=== PATIENT | female | born 1985 ===

== ENCOUNTER 2018-06-03 16:48 | Inpatient (IN) ==
--- NOTE | 2018-06-03 16:28 | OB/GYN History & Physical ---
Date of Encounter: 06/03/18 Time of Encounter: 16:25 Assessment and Plan (1) 40 weeks gestation of Current visit: Yes Status: Acute admitted for delivery (2) Rh negative status during in third trimester Current visit: Yes Status: Acute Rhogam evaluation following delivery History of Present Illness Chief complaint: BPP 4/8 HPI: Ms. Garcia is a 32 year old female at 40w2d presents to labor and delivery for IOL for post dates with BPP 4/8. 0 for tone and breathing. Patient reports irregular contractions, denies LOF or VB. Blood type: A Negative Rubella: Immune Hep B:Nonreactive Group B: Negative Past Med Surg Social Fam HX - Past Medical History Source: patient Medical history: no medical history Psychiatric history: no psych history - Past Surgical History Surgical History: other (I&D of abcess R breast, wisdom teeth) - Social History Smoking Status: Never smoker Smokeless Tobacco Status: No Alcohol use: none Drug use: none Occupational status: employed Current living situation: Home - Independent Activity Level: Independent ambulation Recent Out of Country Travel Within the Last 8 Weeks: No Exposure or Possible Exposure to Illness During Travel: No Obstetrical History - Pregnancies : 2 Para: 1 Term: 1 : 0 Ab's: 0 Livin Medications and Allergies 3 Allergy/AdvReac Type Severity Reaction Status Date / Time No Known Allergies Allergy Verified 06/03/18 16:11 Review of System OB - Constitutional Constitutional ROS IM: no fever(s), no headache(s) - Cardiovascular Cardiovascular: no chest pain, no palpitations, no syncope - Gastrointestinal Gastrointestinal: no abdominal pain, no diarrhea, no heartburn, no nausea, no vomiting - Genitourinary Genitourinary: no abnormal vaginal bleeding, no dysuria, no flank pain, no urinary urgency, no vaginal discharge, no vaginal odor, no vaginal pruritis Exam - Constitutional Constitutional: well developed, well nourished, no acute distress, average body habitus - HEENT HEENT: Normocephaly, Mucus Membranes Moist - Neck Neck exam: full ROM, supple - Lungs Respiratory exam: CTAB - Cardiovascular Cardiovascular exam: RRR, +S1, +S2 - Abdomen Abdomen: Present: bowel sounds normal, gravid, non tender - Extremities Extremities exam: full ROM, normal capillary refill, normal inspection Deep Tendon Reflex Grade: 2+ Normal - Cervix Dilation: 3 (per CNM in office) Effacement: 70 Station: -1 - Uterus Uterus exam: Present: normal size, normal contour - Anus/Rectum Anus/Rectum: Present: normal perianal skin - Comments Comments: FHR 125 bpm moderate variability +15x15 accels no decels noted. Cat 1 tracing. Contractions are irregular. Results All other labs normal. - VTE Reasons for not Prescribing Prophylaxis: Treatment not Indicated - Low risk for VTE
[2018-06-03 16:48] LABS: Amphetamine Screen,Urine Negative ng/mL (Cutoff=1000); Barbiturate Screen,Urine Negative ng/mL (Cutoff=200); Benzodiazepines Screen,Urine Negative ng/mL (Cutoff=200); Cannabinoid Screen,Urine Negative ng/mL (Cutoff = 50); Cocaine Screen,Urine Negative ng/mL (Cutoff= 300); Opiate Screen,Urine Negative ng/mL (Cutoff=300); Phencyclidine Screen,Urine Negative ng/mL (Cutoff=25)
[~2018-06-03 16:48] MED LIST: *HR* Nalbuphine 10 MG/ML AMPUL IVP PRN; Famotidine 20 MG/2 ML VIAL IVP PRN; Naloxone 0.4 MG/ML INJ IVP PRN; Ondansetron 4 MG/2 ML VIAL IVP PRN; Ringers Solution, Lactated 1,000 ML IVC SCH
[2018-06-03 16:49] LABS: Basophils # 0.1 K/mcL (0.0-0.2); Basophils % 0.5 %; Eosinophils # 0.1 K/mcL (0.0-0.6); Eosinophils % 0.5 %; Hematocrit 35.1 % (35.3-44.9); Hemoglobin 11.7 g/dL (11.5-15.4); Immature Granulocytes % 2.2 % (0-4); Immature Platelets 11.2 % (1.1-6.1); Lymphocytes % 18.1 %; Mean Corpuscular HGB Conc 33.3 g/dL (31.6-35.5); Mean Corpuscular Hemoglobin 30.7 pg (28.0-33.3); Mean Corpuscular Volume 92.1 fL (83.0-100.0); Mean Platelet Volume 11.9 fL (9.4-12.4); Monocytes # 1.1 K/mcL (0.0-1.3); Monocytes % 9.5 %; Neutrophils # 7.8 K/mcL (1.6-8.9); Platelet Count 109 K/mcL (140-400); Red Blood Count 3.81 M/mcL (3.82-4.97); Red Cell Distribution Width 13.7 % (11.5-14.5); Segmented Neutrophils % 69.2 %
[2018-06-03 17:09] LABS: Platelet Estimate Decreased (Normal)
--- NOTE | 2018-06-03 19:10 | OB Labor Progress Note ---
Date of Encounter: 06/03/18 Time of Encounter: 19:08 Labor Progress Note - Subjective Subjective: Patient resting in bed. Discussed POC with patient. Patient enquiring again about going home. Patient requesting to use breast pump to try and start labor. Patient declines any other medication at this time. - Cervix Cervix: 4/70/-1 - Heart Tones Heart Tones: 135 bpm moderate variability +15x15 accels no decels noted. - [place] Collins: irregular - Interventions Interventions: SVE - Plan Plan: Continue EFM, will try nipple stimulation with breast pump to help regulate contractions. Discussed again with patient she would have to sign out AMA if she wishes to go home.
--- NOTE | 2018-06-03 21:36 | OB Labor Progress Note ---
Date of Encounter: 06/03/18 Time of Encounter: 21:34 Labor Progress Note - Subjective Subjective: Patient requesting SVE. Patient reports contractions are getting stronger and closer together. - Cervix Cervix: 4.5/70/-1 - Heart Tones Heart Tones: 120 bpm moderate variability +15x15 accels variable noted. - [place]: 1.5-6 min apart - Interventions Interventions: SVE - Plan Plan: Patient would like to continue to use birthing ball at this time. Possible AROM at 5-6 CM
[2018-06-04] MEDS ORDERED: Oxytocin 20 units/ LR 1000 mL 20 UNIT/1,000 ML BAG IVC ONE (00:44)
--- NOTE | 2018-06-04 02:58 | OB/GYN Procedure Note ---
Delivery - Delivery Date: 06/04/18 Provider: Tram Awad Intrapartum events: none Delivery induction: AROM, other (cervical ripening ) Delivery monitor: external FHT, external uterine Anesthesia: local (for repair) Quantitated Blood Loss: 250 - Infant (s) A Infant Delivery Date: 06/04/18 Infant Delivery Time: 02:20 Presentation: vertex Position: JESSICA Route of delivery: Gender: Female Viability: Viable Pounds: 9 Ounces: 3 Weight Gram: 4180 kg Shoulder Dystocia: not encountered Specimens collected: cord blood Placenta: spontaneous, uterine exploration Cord: nuchal cord (x1), 3 umbilical vessels, nuchal reduced - Repair Episiotomy: none Laceration Description: Perineal - 2nd Degree (repaired with 3-0 vicryl) - Complications Delivery complications: none - Disposition Mom disposition: stable in LDR [place] disposition: stable in LDR - Comments Comments: Called to LDR patient feels pressure. Patient progressed to complete. Under maternal effort patient spontaneously delivered a viable female . A nuchal cord x1 was noted and easily reduced, no shoulder dystocia or meconium was noted. Infant was placed on maternal abdomen. A second degree perineal laceration noted and repaired with 3-0 vicryl. 1% lidocaine was used to anesthetize for repair. Cord was clamped and cut after pulsations ceased. Cord blood was collected. Placenta delivered spontaneously and intact. 3 vessel cord. Pericare provided, all counts correct. Mother and infant stable in LDR for 2 hour recovery.
[2018-06-04] MEDS ORDERED: Acetaminophen 325 MG TABLET PO PRN (03:16)
[2018-06-04] MEDS ORDERED: Benzocaine/Menthol 56 GM AEROSOL SPRAY TP PRN (03:16)
[2018-06-04] MEDS ORDERED: Lanolin 7 G OINT...G. TP PRN (03:16)
[2018-06-04] MEDS ORDERED: *HR* HYDROcodone/Acet 5/325 mg TABLET PO PRN (03:16)
[2018-06-04] MEDS ORDERED: Oxytocin 20 units/ LR 1000 mL 20 UNIT/1,000 ML BAG IVC SCH (03:16)
[2018-06-04] MEDS ORDERED: Measles/Mumps/Rubella Vacc 0.5 ML VIAL SQ PRN (03:16)
[2018-06-04] MEDS ORDERED: Rho Immune Globulin 1,500 UNIT SYRINGE IM PRN (03:16)
[2018-06-04] MEDS: Ibuprofen 600 MG TABLET PO PRN ×4 (03:41→22:08)
[2018-06-04] MEDS: Prenatal Vit/FA 1 EACH TABLET PO SCH (07:57)
[2018-06-05] MEDS: Ibuprofen 600 MG TABLET PO PRN (05:30)
[2018-06-05 08:06] VITALS: BP 96/57
--- NOTE | 2018-06-05 08:17 | Discharge Summary ---
Date of Encounter: 06/05/18 Time of Encounter: 08:14 - Discharge Diagnosis (1) 40 weeks gestation of Priority: Secondary Status: Acute (2) Rh negative status during in third trimester Priority: Secondary Status: Acute (3) Vaginal delivery Priority: Primary Status: Acute Comments: Continue routine care discharge home today follow up with CNM in 4-6 weeks (4) Second degree perineal laceration during delivery Priority: Secondary Status: Acute Comments: Continue routine perineal care sitz baths pern Continue colace (5) Breast feeding status of mother Priority: Secondary Status: Acute Comments: support prn - Discharge Medications Prescriptions: Ibuprofen [Motrin] 600 mg PO Q6HR PRN #60 tablet PRN Reason: Cramping Home Medications: Vit/Iron Fumarate/FA [ Tablet] 1 tab PO DAILY 06/03/18 [History ] Benzocaine/Menthol [place] [Dermoplast [place]] 1 appl TP QID PRN aerosol 06/05/18 [Rx] Docusate [Colace] 100 mg PO BID capsule 06/05/18 [Rx] Ibuprofen [Motrin] 600 mg PO Q6HR PRN #60 tablet 06/05/18 [Rx] Lanolin [Lansinoh] 1 appl TP TID PRN oint...g. 06/05/18 [Rx] Vit/FA 1 each PO DAILY tablet 06/05/18 [Rx] Allergies/Adverse Reactions: 3 Allergy/AdvReac Type Severity Reaction Status Date / Time No Known Allergies Allergy Verified 06/03/18 16:11 Data Procedures and tests throughout hospitalization: Laboratory Tests 06/03/18 06/03/18 06/04/18 16:00 16:00 03:15 WBC 11.2 H RBC 3.81 L Hgb 11.7 Hct 35.1 L MCV 92.1 MCH 30.7 MCHC 33.3 RDW 13.7 Plt Count 109 L MPV 11.9 Immature Gran % 2.2 Seg Neutrophils % 69.2 Lymphocytes % 18.1 Monocytes % 9.5 Eosinophils % 0.5 Basophils % 0.5 Neutrophils # 7.8 Lymphocytes # 2.0 Monocytes # 1.1 Eosinophils # 0.1 Basophils # 0.1 Platelet Estimate Decreased L Immature Plt Fraction 11.2 H Urine Opiates Screen Negative Ur Barbiturates Screen Negative Ur Phencyclidine Scrn Negative Ur Amphetamines Screen Negative U Benzodiazepines Scrn Negative Urine Cocaine Screen Negative U Marijuana (THC) Screen Negative Ur Drug Screen Interp See Below Screen NEGATIVE Baby's Blood Type A RH POSITIVE Mother's Blood Type A RH NEGATIVE Rhogam Indicated YES Rhogam Req for Mother 1 Labs on day of discharge: Labs from last 24 hours 06/04/18 03:15 Screen NEGATIVE Baby's Blood Type A RH POSITIVE Mother's Blood Type A RH NEGATIVE Rhogam Indicated YES Rhogam Req for Mother 1 Date of admission: 06/03/18 16:48 Primary care physician: Baylee Sanchez Consults: 06/04/18 03:16 Consult to Returns Clerk [CONS] Routine Comment: Vaginal delivery, consult needed Discharging clinician: Tram Awad Anticipated date of discharge: 06/05/18 - Patient Status Disposition: Home, Self-Care Condition: Good Functional capacity at discharge: independent ambulation - Discharge Instructions Follow Up With: Baylee Sanchez, [employer] [Primary Care Provider] - Tram Awad CNM [Non-Partnered Physician] - - Diet and Activity Activity: increase activity as tolerated Diet: regular diet Hospital Course Reason for admission: induction of labor Delivery: Episiotomy: none Laceration: 2nd degree Other procedures: none complications: none Discharge diagnosis: IUP at term delivered [place] baby: female (breast feeding) Time Attestation: Total time spent providing and/or coordinating discharge services: Time Spent: Less than 30 minutes Exam - Constitutional Vitals: Temp Pulse Resp BP Pulse Ox 98.7 F 70 12 96/57 98 06/05/18 08:04 06/05/18 08:04 06/05/18 08:04 06/05/18 08:04 06/05/18 08:04 General appearance IM: A&O X 3, pleasant, answers questions appropriately - Respiratory Respiratory exam: Present: CTAB - Cardiovascular Cardiovascular exam IM: Present: RRR, +S1, +S2 - GI/Abdominal GI/Abdominal exam IM: normal bowel sounds - Uterine Tone: Firm Uterus Position: 1 Finger Below Umbilicus - Extremities Exam Extremities exam IM: Present: full ROM - Neurological Exam Neurological exam: alert, oriented X3, reflexes normal
[2018-06-05] MEDS: Prenatal Vit/FA 1 EACH TABLET PO SCH (08:40)
== END 2018-06-05 10:45 | disposition home or self-care (01) | DRG 775 ==
LOC: 1NENULAB → 1NENUOBS 06-04 05:13
PROVIDERS: ADMIT Obstetrics & Gynecology; ATTEND Obstetrics & Gynecology